=== PATIENT | female | born 1960 | race Caucasian/White ===

== ENCOUNTER 2023-10-11 07:48 | Outpatient (AMB) | payer OTHER, SELFPAY ==
--- NOTE | 2023-10-11 07:52 | A.OFFVIS_ITS ---
Vital Signs 10/11/23 07:56 Height 5 ft Weight 180 lb BMI 35.2 Intake Visit Reasons: N/P Right Knee O.A pain Intake Note: Esther 63 yr old female presents today for a new patient visit to re-establish care for her Right Knee O.A pain. States she last had an injection on 04/[address] Lynn Pastor. Patient reports that the injection was helpful and she would like to do another injection today. She wishes to hold off on total knee replacement surgery for as long as possible. She has done physical therapy exercises which aggravated her pain. She has also tried Tylenol and anti- inflammatory medicines which gave her minimal relief. Allergies Penicillins Allergy (Verified 10/11/23 07:57) Unknown Medication List - Last Reconciled 10/11/23 by Jensen Pimentel MD cholecalciferol (vitamin D3) 25 mcg PO DAILY escitalopram oxalate (Lexapro) 10 mg PO DAILY lisinopril 10 mg PO DAILY magnesium citrate 100 mg PO DAILY [facility] Surgical History (Updated 10/11/23 @ 07:59 by Dahiana Sexton CMA) Previous section H/O: hysterectomy (~2007) Social History (Updated 10/11/23 @ 07:59 by Dahiana Sexton CMA) Current occupational status: employed Current occupation: School Nurse Physical Exam Vital Signs: BMI result Body Mass Index 35.2 Const Other: Well-nourished well-developed very friendly female awake alert and oriented x3 in no acute distress Extrem Other: Bilateral lower extremity examination shows good capillary refill, no skin les ions noted, normal sensation light touch Right knee examination shows a minimal effusion, palpable crepitus with range of motion, pain with range of motion, range of motion from -3 degrees to 115 degr ees, no instability Results Reviewed Results Reviewed: X-rays of the patient's right knee show joint space narrowing, subchondral sclerosis, osteophyte formation, no acute bony abnormalities Assessment & Plan Assessment & Plan (1) Arthritis of right knee: Code(s): M17.11 - Unilateral primary osteoarthritis, right knee Category: Medical Plan Ms. Whiting presents with right knee pain due to degenerative joint disease. I had a lengthy discussion with the patient regarding the treatment options. She wishes to hold off on total knee replacement surgery for as long as possible. I agree with this plan. The risks and benefits of a cortisone injection were discussed at length with the patient. The patient wished to proceed with the injection. She tolerated the injection well. She will continue with her home exercise program. She will contact me prior to her follow-up appointment in 3 months should any questions or concerns arise. Feel free to call me at any time should questions regarding her orthopedic management arise. I spent 22 minutes in reviewing the patient's records and imaging studies, seeing the patient and documenting in the medical record. Orders: Orders AMB Joint Injection/Aspiration Today M17.11 - Unilateral primary osteoarthritis, right knee XR knee RT 3V Today M25.561 - Pain in right knee Coding Level of Care Code Est Pt Level 3 (33443) Diagnoses Arthritis of right knee M17.11
[2023-10-11 07:56] VITALS: BMI 35.2
== END 2023-10-11 08:23 | disposition home or self-care (01) ==
PROVIDERS: PCP Physician Assistant; Visit Provider Orthopaedic Surgery
DX: M17.11 Unilateral primary osteoarthritis, right knee (principal)
CPT/HCPCS: 20610; 99213

== ENCOUNTER 2023-10-11 10:05 | Outpatient (REF) | payer OTHER, SELFPAY ==
--- NOTE | ~2023-10-11 | XR_ITS ---
EXAMINATION: XR KNEE, RIGHT CLINICAL INFORMATION: Pain in right knee. COMPARISON: None available. TECHNIQUE: Three views of the right knee. FINDINGS: The bones are diffusely demineralized. Moderate tricompartmental osteophytes. Small joint effusion. A 1.9 cm heterogeneous ossicle along the anterior central aspect of the knee joint is concerning for a loose body. Mild narrowing of the tricompartments. XR/XR knee RT 3V IMPRESSION: 1. Moderate degenerative changes. 2. A 1.9 cm heterogeneous ossicle along the anterior central aspect of the knee joint is concerning for a loose body.
== END 2023-10-11 10:06 | disposition home or self-care (01) ==
LOC: HO.HOSX 10:05
PROVIDERS: Visit Provider Orthopaedic Surgery
DX: M17.11 Unilateral primary osteoarthritis, right knee (principal)
CPT/HCPCS: 20610; 73562; J1010